=== PATIENT | female | born 1960 | race Caucasian/White ===

== ENCOUNTER 2021-06-18 12:34 | Emergency (ER) | payer MEDICAID ==
[~2021-06-18] VITALS: Ht 160 cm; Wt 70.8 kg
[2021-06-18 12:46] VITALS: BP 132/74
[2021-06-18] MEDS ORDERED: DEXAMETHASONE 4 MG TABLET ONE (13:28)
[2021-06-18] MEDS ORDERED: DEXAMETHASONE 1 MG TABLET ONE (13:29)
[2021-06-18] MEDS ORDERED: DEXAMETHASONE 1 MG TABLET PO ONE (13:30)
--- NOTE | 2021-06-18 13:32 | NUR ---
Patient discharged to home in stable condition. Written and verbal after care instructions given. Patient verbalizes understanding of instruction.
== END 2021-06-18 13:33 | disposition home or self-care (01) ==
LOC: ER 13:01
DX: L23.7 Allergic contact dermatitis due to plants, except food (principal); R22.0 Localized swelling, mass and lump, head; Z91.048 Other nonmedicinal substance allergy status
CPT/HCPCS: 99283; J8540 ×2

== ENCOUNTER 2022-01-31 14:34 | Inpatient (IN) | payer MEDICAID ==
[~2022-01-31] VITALS: Ht 165.1 cm; Wt 73.5 kg
--- NOTE | 2022-01-31 14:43 | NUR ---
TO ER BED 9, ASSISTED BY PARAMEDICS AND STAFF; ATTACHED TO MONITOR, VS TAKEN. PATIENT A/O X4, VERBALLY RESPONSIVE, STATES THAT SHE WAS SHOPPING AT [employer] AND WAS GOING TO GO TO [employer] BUT FELT WEAK/DIZZY. VERBALIZES FEELING PRESSURE IN CHEST BUT NO PAIN AT THIS TIME.
--- NOTE | 2022-01-31 14:59 | NUR ---
X RAY AT BEDSIDE
--- NOTE | 2022-01-31 15:01 | NUR ---
TAPPER BALANCE WHEEL SCREW HOLE AT BEDSIDE
--- NOTE | 2022-01-31 15:01 | NUR ---
IV LINE ESTABLISHED ON RAC#20, BLOOD DRAWN/COLLECTED AND SENT TO LAB; LINE CONVERTED TO SALINE LOCK.
--- NOTE | 2022-01-31 15:07 | NUR ---
PATIENT REQUESTED FOR IV LINE TO BE REMOVED BECAUSE IT'S HURTING HER ARM. LINE REMOVED, NO BLEEDING NOTED.
[2022-01-31 15:26] LABS: BASOPHILS # (AUTO) 0.1 K/uL (0.0-0.2); EOSINOPHILS % (AUTO) 1.5 % (0.0-6.0); HEMATOCRIT 39 % (33-45); HEMOGLOBIN 13.2 g/dL (11.5-14.8); LYMPHOCYTES # (AUTO) 1.8 K/uL (0.8-4.8); LYMPHOCYTES % (AUTO) 36.8 % (20.0-44.0); MEAN CORPUSCULAR HGB CONC 34 g/dl (31.0-36.0); MEAN CORPUSCULAR VOLUME 86 fL (82-100); MONOCYTES # (AUTO) 0.3 K/uL (0.1-1.30); MONOCYTES % (AUTO) 6.4 % (2.0-12.0); NEUTROPHILS # (AUTO) 2.7 K/uL (1.8-8.9); NEUTROPHILS % (AUTO) 54.3 % (43.0-81.0); PLATELET COUNT (AUTO) 326 K/uL (150-450); RED BLOOD CELL COUNT(AUTO) 4.53 MIL/uL (4.0-5.2)
[2022-01-31 15:50] LABS: ALANINE AMINOTRANSFERASE 49 U/L (12-78); ALBUMIN 3.8 g/dL (3.4-5.0); ALKALINE PHOSPHATASE 99 U/L (46-116); ASPARTATE AMINOTRANSFERASE 39 U/L (15-37); BILIRUBIN,DIRECT 0.1 mg/dL (0.0-0.2); BILIRUBIN,TOTAL 0.4 mg/dL (0.2-1.0); CALCIUM, SERUM 8.9 mg/dL (8.5-10.1); CARBON DIOXIDE 30 mmol/L (21-32); CHLORIDE 98 mmol/L (98-107); CREATININE 0.9 mg/dL (0.6-1.3); GLUCOSE 158 mg/dL (74-106); POTASSIUM 3.2 mmol/L (3.5-5.1); SODIUM SERUM 132 mmol/L (136-145); TOTAL PROTEIN, SERUM 7.4 g/dL (6.4-8.2); UREA NITROGEN, BLOOD 11 mg/dL (7-18)
[2022-01-31] MEDS ORDERED: LORA10TA7 PO (18:36)
[2022-01-31] MEDS ORDERED: ERGO500093 PO (18:36)
[2022-01-31] MEDS ORDERED: METF-440 PO (18:36)
[2022-01-31] MEDS ORDERED: AMLO-213 PO (18:36)
[2022-01-31] MEDS ORDERED: MAGN400T26 PO (18:36)
[2022-01-31] MEDS ORDERED: LIPA1CAP15 PO (18:36)
[2022-01-31] MEDS ORDERED: ASPI-1420 PO (18:36)
[2022-01-31] MEDS ORDERED: OMEG-72 PO (18:36)
[2022-01-31] MEDS ORDERED: FLUT16SP16 BNOSTRILS (18:36)
[2022-01-31] MEDS ORDERED: LOSA1TAB39 PO (18:36)
--- NOTE | 2022-01-31 18:39 | NUR ---
RADHA KHAN OBTAINED AND SENT TO LAB
--- NOTE | 2022-01-31 19:39 | NUR ---
PT RESTING IN BED, STATES "FEELS SHORT OF BREATH". O2 SAT NOTED AT 96. POSITIONED BED IN HIGH FOWLERS. PT IS TOLERATING WELL AND STATES NO LONGER FEELS SHORT OF BREATH. PT DID NOT WANT NASAL CANNULA. WILL CONTINUE TO MONITOR.
[2022-01-31] MEDS ORDERED: ENOXAPARIN SODIUM 40 MG/0.4 ML DISP.SYRIN SQ ONE (21:00)
--- NOTE | 2022-01-31 21:07 | NUR ---
EPIC PANEL PAGED
--- NOTE | 2022-01-31 21:33 | NUR ---
EPIC PANEL PAGED
--- NOTE | 2022-01-31 22:46 | NUR ---
REPORT GIVEN TO MARTI MOODY FOR [facility]
[2022-01-31] MEDS ORDERED: MAG HYDROX/AL HYDROX/SIMETH 30 ML UDC PO PRN (23:00)
[2022-01-31] MEDS ORDERED: ZOLPIDEM TARTRATE 5 MG TABLET PO PRN (23:00)
[2022-01-31] MEDS ORDERED: ACETAMINOPHEN 325 MG TABLET PO PRN (23:00)
[2022-01-31] MEDS ORDERED: Z GUARD REMEDY 4 OZ OINT TP PRN (23:00)
[2022-01-31] MEDS ORDERED: MAGNESIUM HYDROXIDE 30 ML UDC PO PRN (23:00)
[2022-01-31] MEDS ORDERED: ONDANSETRON HCL/PF 4 MG/2 ML VIAL IVP PRN (23:00)
--- NOTE | 2022-01-31 23:27 | NUR ---
CONTRACTOR BROOMCORN THRESHING NOTES: RECEIVED REPORT FROM HEIDY HALE. PT TRANSFERRED TO [facility] FROM ER VIA GURNEY, PLACED IN ROOM 114 BED 2. PT AWAKE, ALERT/ORIENTED X4 AND VERBALLY RESPONSIVE. LUXEMBOURGER SPEAKING. ON ROOM AIR AND PT TOLERATED WELL. O2 SAT 100%. IV ACCESS ON RAC#18G INTACT AND PATENT. NO S/S OF INFILTRATIONS. BODY ASSESSMENT DONE. NO OPEN SKIN OR SKIN DISCOLORATIONS NOTED. SKIN INTACT AND DRY TO TOUCH. NO C/O PAIN OR DISCOMFORT. NO ACUTE DISTRESS. CONTINENT ON BOWEL AND BLADDER. ABLE TO GO TO THE BATHROOM BY HERSELF. ALL SAFETY MEASURES IN PLACE. BED IN LOWEST POSITION AND LOCKED. SIDE RAILS UP X2, PLACE CALL LIGHT WITH IN REACH. WILL CONTINUE TO MONITOR.
[2022-01-31] MEDS ORDERED: LORATADINE 10 MG TABLET PO PRN (23:30)
[2022-01-31] MEDS ORDERED: ERGOCALCIFEROL (VITAMIN D 2) 50,000 UNIT CAPSULE PO SCH (23:30)
[2022-02-01] VITALS: BP 155/85
--- NOTE | 2022-02-01 00:55 | NUR ---
0055 Dr. Banegas made aware of critical troponin 76 with order made.
--- NOTE | 2022-02-01 00:55 | NUR ---
0055 Patient with complain of left under breast heaviness radiating to her shoulder, back, and left shoulder. No distress noted. VS checked as follows: 139/76, HR 67 NSR, O2 sat 99% on room air. Dr. Banegas made aware with orders to give Lovenox 40mg SQ one dose now and Nitroglycerin 0.4mg sublingual one dose only now. Orders noted and verified with pharmacy c/o [facility].
[2022-02-01] MEDS ORDERED: ENOXAPARIN SODIUM 40 MG/0.4 ML DISP.SYRIN SQ ONE (01:00)
[2022-02-01] MEDS ORDERED: NITROGLYCERIN 0.4 MG/TAB BOTTLE SL PRN (01:00)
--- NOTE | 2022-02-01 01:28 | NUR ---
RN NOTES: NITROGLYCERIN 0.4 MG TAB SL AND LOVENOX 40 MG SQ GIVEN PER DR.S ORDER. WILL CONTINUE TO MONITOR
[2022-02-01 04:00] VITALS: BP 107/63
[2022-02-01 06:16] LABS: BASOPHILS % (AUTO) 0.5 % (0.0-2.0); EOSINOPHILS % (AUTO) 1.4 % (0.0-6.0); HEMATOCRIT 38 % (33-45); HEMOGLOBIN 13.1 g/dL (11.5-14.8); LYMPHOCYTES # (AUTO) 2.3 K/uL (0.8-4.8); LYMPHOCYTES % (AUTO) 33.5 % (20.0-44.0); MEAN CORPUSCULAR HGB CONC 34 g/dl (31.0-36.0); MEAN CORPUSCULAR VOLUME 86 fL (82-100); MONOCYTES # (AUTO) 0.5 K/uL (0.1-1.30); MONOCYTES % (AUTO) 7.3 % (2.0-12.0); NEUTROPHILS # (AUTO) 3.9 K/uL (1.8-8.9); NEUTROPHILS % (AUTO) 57.3 % (43.0-81.0); PLATELET COUNT (AUTO) 329 K/uL (150-450); RED BLOOD CELL COUNT(AUTO) 4.46 MIL/uL (4.0-5.2); WHITE BLOOD COUNT (AUTO) 6.8 K/uL (4.3-11.0)
--- NOTE | 2022-02-01 06:35 | NUR ---
RN CLOSING NOTES: PT SLEEPING IN BED BUT EASILY AROUSABLE, ALERT/ORIENTED X4 AND VERBALLY RESPONSIVE. GEORGIAN SPEAKING. ON ROOM AIR AND PT TOLERATED WELL. O2 SAT 100%. IV ACCESS ON RAC#18G INTACT AND PATENT. NO S/S OF INFILTRATIONS. NO C/O PAIN OR DISCOMFORT. NO ACUTE DISTRESS. ALL DUE MEDS GIVEN ORDERED. CONTINENT ON BOWEL AND BLADDER. ABLE TO GO TO THE BATHROOM BY HERSELF. ALL SAFETY MEASURES IN PLACE. BED IN LOWEST POSITION AND LOCKED. SIDE RAILS UP X2, PLACE CALL LIGHT WITH IN REACH. WILL ENDORSE TO MORNING SHIFT NURSE.
[2022-02-01 06:48] LABS: CREATININE 0.7 mg/dL (0.6-1.3); POTASSIUM 4.1 mmol/L (3.5-5.1)
--- NOTE | 2022-02-01 07:30 | NUR ---
FOOD TECHNOLOGY TEACHER OPENING NOTES RECEIVED PATIENT AWAKE IN BED. PATIENT IS ALERT/ORIENTED X4 AND VERBALLY RESPONSIVE IN MALAY LANGUAGE. ON TELE MONITOR, READING SR.ON ROOM AIR AND PATIENT TOLERATING WELL. O2 SAT 100%. IV ACCESS ON RAC#18G INTACT AND PATENT. NO S/S OF INFILTRATION NOTED. PATIENT IS AMBULATORY. NO DIZZINESS NOTED. NO C/O PAIN OR DISCOMFORT. NO ACUTE DISTRESS NOTED. CONTINENT ON BOWEL AND BLADDER. ABLE TO MAKE NEEDS KNOWN IN POLISH LANGUAGE.ALL SAFETY MEASURES IN PLACE. BED IN LOWEST POSITION AND LOCKED. SIDE RAILS UP X2, PLACE CALL LIGHT WITH IN REACH. WILL CONTINUE TO MONITOR.
[2022-02-01 08:00] VITALS: BP 112/70
[2022-02-01] MEDS: VALSARTAN 80 MG TABLET PO SCH (08:42)
[2022-02-01] MEDS: ASPIRIN EC 81 MG TABLET.DR PO SCH (08:43)
[2022-02-01] MEDS: ATORVASTATIN 40 MG TABLET PO SCH (08:43)
[2022-02-01] MEDS: MAGNESIUM OXIDE 400 MG TABLET PO SCH (08:43)
[2022-02-01] MEDS: AMLODIPINE BESYLATE 10 MG TABLET PO SCH (08:43)
[2022-02-01] MEDS: METFORMIN 500 MG TABLET PO SCH (08:43)
[2022-02-01] MEDS ORDERED: NITROGLYCERIN 0.4 MG/TAB BOTTLE ONE (08:46)
[2022-02-01] MEDS ORDERED: METOPROLOL TARTRATE INJ 5 MG/5 ML AMPUL ONE (08:46)
[2022-02-01] MEDS ORDERED: IOHEXOL-350 100 ML VIAL IV ONE (08:46)
[2022-02-01] MEDS ORDERED: CT SWABBABLE VALVE TRANS SET 1 EA INFUS.SET MC ONE (08:46)
[2022-02-01] MEDS ORDERED: IV NS 0.9% 250 ML IV ONE (08:47)
[2022-02-01] MEDS: AMYLASE/LIPASE/PROTEASE 1 CAP CAPSULE.DR PO SCH ×2 (09:00→17:29)
[2022-02-01] MEDS ORDERED: Medication Not On Formulary EA (Omega-3 Acid Ethyl Esters 1 GM) PO SCH (09:00)
[2022-02-01] MEDS ORDERED: LOSARTAN/HCTZ 50-12.5MG/ 1 EA TABLET PO SCH (09:00)
--- NOTE | 2022-02-01 09:00 | NUR ---
RN NOTES HELD AMYLASE MEDICATION, SINCE THE PATIENT TOOK THE HOME CREON MEDICATON WHICH SHE HAD WITH HER IN HER ROOM. EDUCATE THE PATIENT TO GIVE THE 2 MORE TABLETS TO PHARMACY , BUT THE PATIENT REFUSED. NOTIFIED PHARMACY AND CHARGE NURSE. EXPLAINED THE PATIENT THAT HOME MEDICATION IS DIFFERENT THE ONE WE HAVE HERE BUT THE SAME MECHANISM OF ACTION.
[2022-02-01] MEDS ORDERED: NITROGLYCERIN 0.4 MG/TAB BOTTLE SL ONE ×2 (09:30→23:00)
[2022-02-01] MEDS ORDERED: METOPROLOL TARTRATE INJ 5 MG/5 ML AMPUL IVP PRN (09:30)
[2022-02-01 10:03] LABS: THYROID STIMULATING HORMONE 1.618 uIU/mL (0.358-3.74)
[2022-02-01] MEDS: FLUTICASONE PROPIONATE 16 GM BOTTLE NS SCH (10:12)
[2022-02-01] MEDS: ENOXAPARIN SODIUM 80 MG/0.8 ML DISP.SYRIN SQ SCH ×2 (10:19→21:07)
[2022-02-01 12:00] VITALS: BP 118/70
[2022-02-01] MEDS ORDERED: ESOM40CA52 PO (12:22)
[2022-02-01 16:18] VITALS: BP 108/66
--- NOTE | 2022-02-01 18:51 | NUR ---
OFFAL BALER CLOSING NOTES PATIENT AWAKE IN BED. PATIENT IS ALERT/ORIENTED X4 AND VERBALLY RESPONSIVE IN SYRIAC LANGUAGE. ON TELE MONITOR, READING SR.ON ROOM AIR AND PATIENT TOLERATING WELL. O2 SAT 100%. IV ACCESS ON RAC#18G INTACT AND PATENT. NO S/S OF INFILTRATION NOTED. PATIENT IS AMBULATORY. NO DIZZINESS NOTED. NO C/O PAIN OR DISCOMFORT. NO ACUTE DISTRESS NOTED. CONTINENT ON BOWEL AND BLADDER. ABLE TO MAKE NEEDS KNOWN IN LITHU[place]IAN LANGUAGE.ALL SAFETY MEASURES IN PLACE. ALL DUE MEDS GIVEN ORDERED.BED IN LOWEST POSITION AND LOCKED. SIDE RAILS UP X2, PLACE CALL LIGHT WITH IN REACH. WILL ENDORSE FOR [facility]..
[2022-02-01 20:00] VITALS: BP 112/69
--- NOTE | 2022-02-01 20:56 | NUR ---
combatant swimmer Opening Note Pt received in bed, awake, calm, cooperative, mainly Jordanian-speaking but speaks little Urdu and makes needs known. Pt on RA with O2sat at 95%, no s/s of resp distress, no cough or SOB noted, non-labored and equal breathing. Pt attached to external monitor, SR with HR 78. Pt currently complains of pressure-like headache; denies chest pain. IV access on RAC 18G, currently has no fluids/meds running through it at the moment. Bed in lowest position, call light within reach, side rails up x3. Will continue to monitor throughout the night.
--- NOTE | 2022-02-01 23:20 | NUR ---
RN Note Pt complains of chest pain that radiates to left arm. Katt Williamson informed and ordered nitroglycerin SL 0.4 mg once. Pt administered medication, will monitor for effectiveness.
[2022-02-02] VITALS: BP 133/80
[2022-02-02 00:20] LABS: BILIRUBIN,URINE NEGATIVE (NEGATIVE); COLOR,URINE YELLOW (YELLOW); LEUKOCYTE ESTERASE ,URINE NEGATIVE (NEGATIVE); NITRITE, URINE NEGATIVE (NEGATIVE); PH,URINE 7.5 (5.0-8.0); PROTEIN,URINE NEGATIVE (NEGATIVE); UGLUCOSE NEGATIVE (NEGATIVE); UROBILINOGEN,URINE 0.2 EU/dL (0.2)
[2022-02-02 04:00] VITALS: BP 126/74
--- NOTE | 2022-02-02 06:44 | NUR ---
chief environmental commitment officer Closing Note Pt in bed, asleep, but easily arousable, pt slept well during the night. Pt remains on RA with O2sat ranging from 95%-96% throughout the night, no s/s of resp distress, no cough or SOB noted, non-labored and equal breathing. Pt attached to external monitor, SR with current HR 64. Per pt report, the pain she was feeling on her chest was relieved after administering the 1 tab of nitroglycerin and had slept well throughout the night. IV access on RAC 18G, no fluids/meds running through it at the moment; no s/s of infiltration, flushes easily with no resistance. Bed in lowest position, call light within reach, side rails up x3. Will endorse to dayshift nurse to continue care.
[2022-02-02] MEDS ORDERED: PANTOPRAZOLE 40 MG TABLET.DR PO SCH (07:30)
--- NOTE | 2022-02-02 07:30 | NUR ---
RN NOTES PT FOUND SEMI FOWLERS, APPEARS TO BE SLEEPING, DISPLAYING NO S/S OF DISTRESS, FLACC = 0 AND BREATHING IS EVEN AND UNLABORED ON RA. NSR ON TELE BOX. R AC 18G PATIENT AND INTACT. RN WILL CONTINUE CARE PLAN AND ANTICIPATE NEEDS. SAFETY MEASURES IN PLACE, BED LOCKED AND IN LOWEST POSITION, SIDE RAILS UPX2, CALL LIGHT WITHIN REACH, PT INSTRUCTED TO CALL FOR ASSISTANCE.
[2022-02-02 08:00] VITALS: BP 124/81
[2022-02-02] MEDS: AMYLASE/LIPASE/PROTEASE 1 CAP CAPSULE.DR PO SCH (08:26)
[2022-02-02] MEDS: ATORVASTATIN 40 MG TABLET PO SCH (08:27)
[2022-02-02] MEDS: VALSARTAN 80 MG TABLET PO SCH (08:28)
[2022-02-02] MEDS: FLUTICASONE PROPIONATE 16 GM BOTTLE NS SCH (08:28)
[2022-02-02] MEDS: ENOXAPARIN SODIUM 80 MG/0.8 ML DISP.SYRIN SQ SCH (08:42)
[2022-02-02] MEDS: ASPIRIN EC 81 MG TABLET.DR PO SCH (08:48)
[2022-02-02] MEDS: METFORMIN 500 MG TABLET PO SCH (08:48)
[2022-02-02 08:49] VITALS: BP 124/81
[2022-02-02] MEDS: MAGNESIUM OXIDE 400 MG TABLET PO SCH (08:49)
[2022-02-02] MEDS: AMLODIPINE BESYLATE 10 MG TABLET PO SCH (08:49)
--- NOTE | 2022-02-02 11:35 | NUR ---
DISCHARGE PT DISCHARGED PER MD ORDER. PT IS A&OX4, BREATHING EVEN AND UNLABORED ON RA. PT ENDORSES NO PAIN. PT REQUESTED RECOMMENDATION FOR FLIGHT STATUS FROM ENTRY LEVEL ACCOUNT MANAGER. RN CONTACT DR ZANDER MD GAVE CLEARANCE TO FLY. PT ABLE TO AMBULATE WITHOUT ASSISTANCE WITH STEADY GAIT. DISCHARGE INSTRUCTIONS GIVEN TO PATIENT. IV REMOVED, DRESSING APPLIED, BLOOD WAS VISUALIZED ON FIRST DRESSING, SECOND DRESSING APPLIED, 5 MIN LATER VISUAL CHECK REVEALS NO BLOOD. PT ESCORTED BY RN TO POV. ID REMOVED FROM WRIST. PT DISCHARGED IN STABLE CONDITION.
== END 2022-02-02 11:52 | disposition home or self-care (01) | DRG 190 ==
LOC: ER 14:36 → TELE1 22:07
PROVIDERS: ADMIT Family Medicine; ATTEND Internal Medicine
DX: I21.4 Non-ST elevation (NSTEMI) myocardial infarction (principal); D68.69 Other thrombophilia; E87.1 Hypo-osmolality and hyponatremia; E11.65 Type 2 diabetes mellitus with hyperglycemia; E87.6 Hypokalemia; I10 Essential (primary) hypertension; E86.1 Hypovolemia; Z79.84 Long term (current) use of oral hypoglycemic drugs; R55 Syncope and collapse; Z20.822 Contact with and (suspected) exposure to COVID-19
CPT/HCPCS: 36415; 71045-TC; 75574; 80048-TC; 80061-TC; 80076-TC; 83735-TC; 84100-TC; 84439-TC; 84443-TC; 84484-TC; 85025-TC; 85378-TC; 85730-TC; 87081-TC; 93307-TC; C9803; G0378; J1650; J3490; J7050; Q9967

== ENCOUNTER 2022-06-11 19:10 | Emergency (ER) | payer MEDICAID ==
[~2022-06-11] VITALS: Ht 160 cm; Wt 68.0 kg
[~2022-06-11 19:10] MED LIST: AMLO-213 PO; ASPI-1420 PO; ERGO500093 PO; ESOM40CA52 PO; FLUT16SP16 BNOSTRILS; LIPA1CAP15 PO; LORA10TA7 PO; LOSA1TAB39 PO; MAGN400T26 PO; METF-440 PO; OMEG-72 PO
--- NOTE | 2022-06-11 19:24 | NUR ---
[id number] FROM HOME C/O SHARP SUBSTERNAL PAIN P/S 02/21, RADIATED TO NECK AND SHOULDER, GIVEN NITRO SL 0.4MG AND ASA 324MG CERTIFIED PHLEBOTOMIST. PATIENT IS AAOX4. ABLE TO MAKE NEEDS KNOWN. ATTACHED TO MONITOR. VITALS CHECKED.
--- NOTE | 2022-06-11 19:35 | NUR ---
IV CANNULA G20 ON RIGHT AC. BLOOD DRAWN AND SENT TO LAB.
[2022-06-11 20:09] LABS: BASOPHILS % (AUTO) 0.6 % (0.0-2.0); EOSINOPHILS % (AUTO) 1.9 % (0.0-6.0); HEMATOCRIT 37 % (33-45); HEMOGLOBIN 12.3 g/dL (11.5-14.8); LYMPHOCYTES # (AUTO) 2.4 K/uL (0.8-4.8); LYMPHOCYTES % (AUTO) 37.8 % (20.0-44.0); MEAN CORPUSCULAR HGB CONC 33 g/dl (31.0-36.0); MEAN CORPUSCULAR VOLUME 87 fL (82-100); MONOCYTES # (AUTO) 0.5 K/uL (0.1-1.30); MONOCYTES % (AUTO) 8.2 % (2.0-12.0); NEUTROPHILS # (AUTO) 3.3 K/uL (1.8-8.9); NEUTROPHILS % (AUTO) 51.5 % (43.0-81.0); PLATELET COUNT (AUTO) 315 K/uL (150-450); RED BLOOD CELL COUNT(AUTO) 4.28 MIL/uL (4.0-5.2); WHITE BLOOD COUNT (AUTO) 6.4 K/uL (4.3-11.0)
[2022-06-11 20:35] LABS: ALANINE AMINOTRANSFERASE 57 U/L (12-78); ALBUMIN 3.5 g/dL (3.4-5.0); ALKALINE PHOSPHATASE 171 U/L (46-116); ASPARTATE AMINOTRANSFERASE 38 U/L (15-37); BILIRUBIN,DIRECT 0.1 mg/dL (0.0-0.2); BILIRUBIN,TOTAL 0.3 mg/dL (0.2-1.0); CARBON DIOXIDE 30 mmol/L (21-32); CHLORIDE 103 mmol/L (98-107); CREATININE 0.9 mg/dL (0.6-1.3); GLUCOSE 148 mg/dL (74-106); POTASSIUM 3.5 mmol/L (3.5-5.1); SODIUM SERUM 138 mmol/L (136-145); TOTAL PROTEIN, SERUM 7.1 g/dL (6.4-8.2); UREA NITROGEN, BLOOD 11 mg/dL (7-18)
[2022-06-11] MEDS ORDERED: CT SWABBABLE VALVE TRANS SET 1 EA INFUS.SET MC ONE (21:19)
[2022-06-11] MEDS ORDERED: IOHEXOL-300 100 ML VIAL IV ONE (21:19)
[2022-06-11] MEDS ORDERED: IV NS 0.9% 250 ML IV ONE (21:19)
--- NOTE | 2022-06-11 23:16 | NUR ---
IV CANNULA REMOVED
[2022-06-11 23:17] VITALS: BP 131/68
--- NOTE | 2022-06-11 23:17 | NUR ---
DPatient discharged to home in stable condition. Written and verbal after care instructions given. Patient verbalizes understanding of instruction.
== END 2022-06-11 23:30 | disposition home or self-care (01) ==
LOC: ER 19:13
DX: R07.89 Other chest pain (principal); I10 Essential (primary) hypertension; I25.2 Old myocardial infarction; E11.9 Type 2 diabetes mellitus without complications; Z88.8 Allergy status to other drugs, medicaments and biological substances; Z79.899 Other long term (current) drug therapy
CPT/HCPCS: 99285; 71275; 71045; 93005; 85025; 80048; 80076; 85378; 36415; 84484 ×2; J7050; Q9967